=== PATIENT | female | born 1955 | race Caucasian/White ===

== ENCOUNTER 2017-03-04 20:12 | Emergency (ER) | payer MEDICARE, OTHER ==
[~2017-03-04] VITALS: Ht 157.5 cm; Wt 90.6 kg
[~2017-03-04 20:12] MED LIST: CYCL-36 PO; JANU25TA PO; LISI40TA PO; METO50TA PO; ZOLP10TA3 PO
[2017-03-04 20:19] VITALS: BP 163/79; PULSE 111; RESP 20; TEMP 99.3; O2SAT 99
--- NOTE | 2017-03-04 21:28 | PD ---
HPI Chief Complaint: Syncope/Near-Syncope Time Seen by Provider: 21:11 Travel History International Travel<30 days: No Contact w/Intl Traveler<30days: No Traveled to known affect area: No History of Present Illness HPI 61-year-old female with history of diabetes, pseudotumor cerebri, here for evaluation of syncopal episode. The patient was playing pool volleyball when she had a syncopal episode while in the pool at around 6:30 PM. Patient felt as though she was going to pass out and she murmurs grabbing onto the neck. The next thing she remembers is kicking at the bottom of the pool. She was helped to the surface by her friends. She believes she may have aspirated and swallowed some of the pool water. She has never had a previous syncopal episode. She does not know of any personal history of cardio pulmonary disease. No history of DVT or PE. There is family history of heart disease. Currently she is complaining of a 5 out of 10 headache in a bandlike distribution around her head. No chest pain or dyspnea. No abdominal pain. No fevers or recent illness. She checked her blood sugar at the time of the incident and it was 106. Of note her sister in her sleep at the age of 60 last week. PFSH Past Medical History Depression: Yes Cancer: Yes (POLYPS REMOVED) Cardiovascular Problems: Yes Diabetes: Yes Endocrine: Yes (LUMPECTOMY) Glaucoma: Yes Hypertension: Yes Immune Disorder: Yes (LUPUS) Neurologic: Yes (FIBROMYALGIA) Past Surgical History Endocrine Surgery: Yes (L AXILLARY LYMPH NODE REMOVAL) Hysterectomy: Yes Other Surgery: Yes (RHINOPLASTY) Social History Alcohol Use: No Tobacco Use: No Allergies-Medications (Allergen,Severity, Reaction): Coded Allergies: No Known Allergies (Verified , 03/04/17) Reported Meds & Prescriptions Reported Meds & Active Scripts Active Reported Tramadol (Tramadol HCl) 50 Mg Tab 50 Mg PO Q8H PRN Amitriptyline (Amitriptyline HCl) 50 Mg Tab 50 Mg PO HS Lisinopril 40 Mg Tab 40 Mg PO DAILY Glipizide 10 Mg Tab 10 Mg PO BIDAC Take 30 minutes before a meal Metformin (Metformin HCl) 1,000 Mg Tab 1,000 Mg PO BIDPC With meals Januvia (Sitagliptin Phosphate) 25 Mg Tab 25 Mg PO DAILY Metoprolol Tartrate 50 Mg Tab 50 Mg PO DAILY Review of Systems Except as stated in HPI: all other systems reviewed are Neg Physical Exam Narrative GENERAL: Well-developed, well-nourished, pleasant, comfortable, no apparent distress. SKIN: Focused skin assessment warm/dry. HEAD: Atraumatic. Normocephalic. EYES: Pupils equal, round, 3 mm, reactive to light. EOMI. No scleral icterus. No injection or drainage. ENT: Mucous membranes pink and moist. NECK: Trachea midline. No JVD. CARDIOVASCULAR: Regular rate and rhythm. No murmur appreciated. RESPIRATORY: No accessory muscle use. Clear to auscultation. Breath sounds equal bilaterally. GASTROINTESTINAL: Abdomen soft, non-tender, nondistended. MUSCULOSKELETAL: No obvious deformities. No clubbing. No cyanosis. No edema. NEUROLOGICAL: Awake and alert. No obvious cranial nerve deficits. Motor grossly within normal limits. Normal speech. No focal deficits. PSYCHIATRIC: Appropriate mood and affect; insight and judgment normal. Data Data Last Documented VS Vital Signs Date Time Temp Pulse Resp B/P Pulse Ox O2 Delivery O2 Flow Rate FiO2 03/04/17 23:14 76 18 126/78 98 Room Air 03/04/17 20:19 99.3 Orders Electrocardiogram (03/04/17 21:22) Complete Blood Count With Diff (03/04/17 21:22) Comprehensive Metabolic Panel (03/04/17 21:22) Ckmb (Isoenzyme) Profile (03/04/17 21:22) Troponin I (03/04/17 21:22) Act Partial Throm Time (Ptt) (03/04/17 21:22) Prothrombin Time / Inr (Pt) (03/04/17 21:22) Urinalysis - C+S If Indicated (03/04/17 21:22) Chest, Single Ap (03/04/17 21:22) Ct Brain W/O Iv Contrast(Rout) (03/04/17 21:22) Ecg Monitoring (03/04/17 21:22) Iv Access Insert/Monitor (03/04/17 21:22) Oximetry (03/04/17 21:22) Sodium Chloride 0.9% Flush (Ns Flush) (03/04/17 21:30) Urine Culture (03/04/17 22:07) CKMB (03/04/17 22:20) CKMB% (03/04/17 22:20) Labs Laboratory Tests Test 03/04/17 03/04/17 22:07 22:20 Urine Color YELLOW Urine Turbidity CLEAR Urine pH 5.5 Urine Specific [place] 1.017 Urine Protein 30 mg/dL Urine Glucose (UA) NEG mg/dL Urine Ketones TRACE mg/dL Urine Occult Blood NEG Urine Nitrite NEG Urine Bilirubin NEG Urine Leukocyte Esterase TRACE Urine RBC 0-3 /hpf Urine WBC 3-5 /hpf Urine WBC Clumps FEW Urine Squamous Epithelial 0-5 /hpf Cells Microscopic Urinalysis Comment CULTURE INDICATED White Blood Count 11.0 TH/MM3 Red Blood Count 4.78 MIL/MM3 Hemoglobin 13.6 GM/DL Hematocrit 40.2 % Mean Corpuscular Volume 84.1 FL Mean Corpuscular Hemoglobin 28.5 PG Mean Corpuscular Hemoglobin 33.8 % Concent Red Cell Distribution Width 13.2 % Platelet Count 281 TH/MM3 Mean Platelet Volume 8.6 FL Neutrophils (%) (Auto) 70.3 % Lymphocytes (%) (Auto) 19.9 % Monocytes (%) (Auto) 5.0 % Eosinophils (%) (Auto) 2.2 % Basophils (%) (Auto) 2.6 % Neutrophils # (Auto) 7.7 TH/MM3 Lymphocytes # (Auto) 2.2 TH/MM3 Monocytes # (Auto) 0.6 TH/MM3 Eosinophils # (Auto) 0.2 TH/MM3 Basophils # (Auto) 0.3 TH/MM3 CBC Comment DIFF FINAL Differential Comment Prothrombin Time 10.7 SEC Prothromb Time International 1.0 RATIO Ratio Activated Partial 22.6 SEC Thromboplast Time Sodium Level 137 MEQ/L Potassium Level 5.5 MEQ/L Chloride Level 103 MEQ/L Carbon Dioxide Level 24.9 MEQ/L Anion Gap 9 MEQ/L Blood Urea Nitrogen 18 MG/DL Creatinine 1.10 MG/DL Estimat Glomerular Filtration 50 ML/MIN Rate Random Glucose 162 MG/DL Calcium Level 9.4 MG/DL Total Bilirubin 0.4 MG/DL Aspartate Amino Transf 73 U/L (AST/SGOT) Alanine Aminotransferase 61 U/L (ALT/SGPT) Alkaline Phosphatase 144 U/L Total Creatine Kinase 140 U/L Creatine Kinase MB LESS THAN 0.5 NG/ML Troponin I LESS THAN 0.02 NG/ML Total Protein 8.8 GM/DL Albumin 4.0 GM/DL MDM Medical Decision Making Medical Screen Exam Complete: Yes Emergency Medical Condition: Yes Interpretation(s) EKG: Sinus, rate 89, leftward axis, normal intervals, no acute ischemic abnormality. Differential Diagnosis Syncope, dysrhythmia, intracranial abnormality, metabolic abnormality, seizure Narrative Course Initial vital signs show heart rate of 111. This was repeated without any intervention and was 76. Blood pressure 126/78. Pulse ox 98% on room air. Oral temp of 99.3F. CBC is unremarkable. CMP is remarkable for potassium 5.5 with slight hemolysis noted, AST 73, ALT 61 , alkaline phosphatase 144, random glucose 162. Cardiac enzymes are negative. UA shows trace ketones, trace leukocyte esterase, few wbc clumps, 0-5 epithelial cells, culture indicated. The patient reports that she has never had a UTI, and she does not have dysuria or increased urinary frequency. Treatment will be held at this time pending culture which the patient will follow-up with in [address] head: CONCLUSION: Negative noncontrast head CT. Chest x-ray: CONCLUSION: The lungs are clear. Patient was made aware of all findings. She reports history of elevated LFTs secondary to hemochromatosis. She is resting comfortably. She states that she feels a lot better and would prefer to be discharged home. 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 I told her that I am concerned about her story, especially because her sister in her sleep about a week ago. The patient tells me that she does not believe that his nostril causes, and believes that her sister overdosed on alcohol and possibly other drugs. I told her that I would be okay with discharging her home with strict return instructions. She will follow-up with her primary care physician this week. She was informed on when to return to the emergency department. She verbalizes understanding and agreement with plan. Diagnosis Primary Impression: Syncope Qualified Code: R55 - Syncope, unspecified syncope type Referrals: Primary Care Physician 3 days Additional Instructions: Follow-up with your primary care physician this week. Return to the emergency department for worsening symptoms or any other concerns. Disposition: 01 DISCHARGE HOME Condition: Stable Jean Daniels MD Mar 04, 2017 21:28
[2017-03-04] MEDS ORDERED: SODIUM CHLORIDE 0.9% FLUSH 10 ML FLUSH IVF PRN (21:30)
[2017-03-04] MEDS ORDERED: METF1000 PO (21:49)
[2017-03-04] MEDS ORDERED: TRAM50TA PO (21:49)
[2017-03-04] MEDS ORDERED: METO50TA PO (21:49)
[2017-03-04] MEDS ORDERED: GLIP10TA6 PO (21:49)
[2017-03-04] MEDS ORDERED: SITA25 PO (21:49)
[2017-03-04] MEDS ORDERED: LISI40TA PO (21:49)
[2017-03-04] MEDS ORDERED: AMIT50TA3 PO (21:49)
[2017-03-04 21:51] VITALS: RESP 18; O2SAT 98
[2017-03-04 21:52] VITALS: BP_SYST 144; BP_SYST 158; BP_SYST 172; BP_DIAS 75; BP_DIAS 76; BP_DIAS 77; RESP 18
--- NOTE | 2017-03-04 22:24 | RADRPT ---
EXAM DATE/TIME: 03/04/2017 22:07 [facility] COMPARISON: No previous studies available for comparison. INDICATIONS : Syncope. RADIATION DOSE: 57.05 CTDIvol (mGy) MEDICAL HISTORY : Hypertension. Diabetes mellitus type 2. SURGICAL HISTORY : None. ENCOUNTER: Initial ACUITY: 1 day PAIN SCALE: 5/10 LOCATION: cranial TECHNIQUE: Multiple contiguous axial images were obtained of the head. Using automated exposure control and adj ustment of the mA and/or kV according to patient size, radiation dose was kept as low as reasonably a chievable to obtain optimal diagnostic quality images. DICOM format image data is available electro nically for review and comparison. FINDINGS: CEREBRUM: The ventricles are normal for age. No evidence of midline shift, mass lesion, hemorrhage or acute in farction. No extra-axial fluid collections are seen. POSTERIOR FOSSA: The cerebellum and brainstem are intact. The 4th ventricle is midline. The cerebellopontine angle i s unremarkable. EXTRACRANIAL: The visualized portion of the orbits is intact. SKULL: The calvaria is intact. No evidence of skull fracture. CONCLUSION: Negative noncontrast head CT. Rohith Josue MD on March 04, 2017 at 22:21 Board Certified Radiologist. This report was verified electronically.
[2017-03-04 22:30] LABS: AUTOMATED NEUTROPHIL # 7.7 TH/MM3 (1.8-7.7); BASOPHIL # 0.3 TH/MM3 (0-0.2); BASOPHIL % 2.6 % (0.0-2.0); EOSINOPHIL # 0.2 TH/MM3 (0-0.4); EOSINOPHIL % 2.2 % (0.0-4.0); HEMATOCRIT 40.2 % (35.0-46.0); HEMO FLAGS DIFF FINAL; LYMPH % 19.9 % (9.0-44.0); LYMPHOCYTE # 2.2 TH/MM3 (1.0-4.8); MEAN CELL VOLUME 84.1 FL (80.0-100.0); MEAN CORPUSCULAR HEMOGLOBIN 28.5 PG (27.0-34.0); MEAN CORPUSCULAR HGB CONC 33.8 % (32.0-36.0); NEUT % 70.3 % (16.0-70.0); PLATELET COUNT 281 TH/MM3 (150-450); RED BLOOD COUNT 4.78 MIL/MM3 (4.00-5.30); RED CELL DISTRIBUTION WIDTH 13.2 % (11.6-17.2)
[2017-03-04 22:31] LABS: BLOOD, URINE NEG (NEG); GLUCOSE,URINE NEG (NEG); KETONE, URINE TRACE mg/dL (NEG); NITRITE,URINE NEG (NEG); PH, URINE 5.5 (5.0-8.5)
[2017-03-04 22:45] LABS: CHLORIDE 103 MEQ/L (98-107); SODIUM (NA) 137 MEQ/L (136-145)
[2017-03-04 22:47] LABS: URINE COLOR YELLOW (YELLW/STRAW)
[2017-03-04 22:47] LABS: APTT (PATIENT) 22.6 SEC (24.3-30.1); PROTHROMBIN TIME - PATIENT 10.7 SEC (9.8-11.6)
[2017-03-04 22:48] LABS: COMMENT (UR) CULTURE INDICATED; CULTURE IF INDICATED CULTURE INDICATED; RBC, URINE 0-3 /hpf (0-3); SQUAMOUS EPITHELIAL CELL URINE 0-5 /hpf (0-5)
[2017-03-04 22:49] LABS: ANION GAP 9 MEQ/L (5-15); BICARBONATE 24.9 MEQ/L (21.0-32.0); BLOOD UREA NITROGEN 18 MG/DL (7-18)
[2017-03-04 22:52] LABS: ALT (GPT) 61 U/L (10-53); AST (GOT) 73 U/L (15-37); GLOMERULAR FILTRATION RATE 50 ML/MIN (>89)
[2017-03-04 22:54] LABS: TOTAL BILIRUBIN ADULT 0.4 MG/DL (0.2-1.0)
[2017-03-04 22:55] LABS: ALKALINE PHOSPHATASE 144 U/L (45-117); CREATINE KINASE 140 U/L (26-192)
[2017-03-04 23:14] VITALS: BP 126/78; PULSE 76; RESP 18; O2SAT 98
[2017-03-04 23:17] LABS: POTASSIUM 5.5 MEQ/L (3.5-5.1)
--- NOTE | 2017-03-04 23:28 | RADRPT ---
EXAM DATE/TIME: 03/04/2017 22:16 [facility] COMPARISON: No previous studies available for comparison. INDICATIONS : Syncopal episode. MEDICAL HISTORY : None. SURGICAL HISTORY : None. ENCOUNTER: Initial ACUITY: 1 day PAIN SCORE: 0/10 LOCATION: Bilateral chest FINDINGS: A single view of the chest demonstrates the lungs to be symmetrically aerated without evidence of mas s, infiltrate or effusion. The cardiomediastinal contours are unremarkable. Osseous structures are intact. CONCLUSION: The lungs are clear. Cruzito Galan MD on March 04, 2017 at 23:26 Board Certified Radiologist. This report was verified electronically.
[2017-03-04 23:29] LABS: CKMB LESS THAN 0.5 NG/ML (0.5-3.6)
--- NOTE | 2017-03-05 00:15 | EKG ---
Date Performed: 03/04/2017 Time Performed: 21:44:59 PTAGE: 61 years EKG: Sinus rhythm MARKED LEFT AXIS DEVIATION POSSIBLE OLD INFERIOR INFARCTION ABNORMAL ECG NO PREVIOUS TRACING DOCTOR: Samy Pozo Interpretating Date/Time 03/05/2017 00:14:33
== END 2017-03-04 23:56 | disposition home or self-care (01) ==
LOC: PHED 20:12
DX: R55 Syncope and collapse (principal); I10 Essential (primary) hypertension; E11.9 Type 2 diabetes mellitus without complications; R94.31 Abnormal electrocardiogram [ECG] [EKG]; H40.9 Unspecified glaucoma; M79.7 Fibromyalgia; M32.9 Systemic lupus erythematosus, unspecified; E83.119 Hemochromatosis, unspecified; R79.89 Other specified abnormal findings of blood chemistry; R82.4 Acetonuria
CPT/HCPCS: 70450; 71010; 80053; 81001; 82550; 82552; 84484; 85025; 85610; 85730; 87086; 93005; 99285